=== PATIENT | male | born 1960 | race Caucasian/White ===

== ENCOUNTER 2020-04-20 02:28 | Outpatient (CLI) | payer MEDICARE, SELFPAY ==
[2020-04-20 19:52] LABS: SARS-CoV-2 RNA PCR Negative
== END 2020-04-20 02:29 | disposition home or self-care (01) ==
LOC: ANHCOVIDDT 02:28
PROVIDERS: PCP Family Medicine; Visit Provider Surgery
DX: Z01.812 Encounter for preprocedural laboratory examination (principal); Z20.828 Contact with and (suspected) exposure to other viral communicable diseases
CPT/HCPCS: 87635; C9803; U0003

== ENCOUNTER 2020-04-20 07:39 | Outpatient (CLI) | payer MEDICARE, SELFPAY ==
[2020-04-20 08:31] LABS: INR 2.1; Prothrombin Time 23.9 Seconds (11.1-14.7)
[2020-04-20 08:32] LABS: Anion Gap 8 mmol/L (8-16); Blood Urea Nitrogen 14 mg/dL (9-20); Calcium 9.9 mg/dL (8.4-10.2); Carbon Dioxide 26 mmol/L (22-30); Chloride 106 mmol/L (98-107); Estimated Glomerular Filt Rate > 60; Glucose 121 mg/dL (75-110); Partial Thromboplastin Time 37.1 SECONDS (22.3-36.8); Potassium 4.5 mmol/L (3.4-5.0); Sodium 140 mmol/L (137-145)
[2020-04-20 08:54] LABS: Digoxin 0.9 ng/mL (0.8-2.0)
== END 2020-04-20 07:40 | disposition home or self-care (01) ==
PROVIDERS: Anesthesiology; PCP Family Medicine; Visit Provider Surgery
DX: K40.30 Unilateral inguinal hernia, with obstruction, without gangrene, not specified as recurrent (principal); Z79.01 Long term (current) use of anticoagulants; Z01.818 Encounter for other preprocedural examination
CPT/HCPCS: 36415; 80048; 80162; 85610; 85730; 86850; 86900; 86901; 87635; C9803; U0003

== ENCOUNTER 2020-04-23 00:56 | Day surgery (SDC) | payer MEDICARE, SELFPAY ==
[2020-04-16 10:57] VITALS: BMI 25.7
--- NOTE | 2020-04-22 13:37 | WPDANESEPP ---
Anes - Eval Pre Procedure Procedure: Operation Date: 04/23/20 07:30 Proposed Procedures p Robotic Assisted Laparoscopic Incarcerated Right Inguinal Hernia Repair With Mesh - India Melara MD Date/Time: 04/22/20 13:37 Pre Op Diagnosis: Incarcerated Right Inguinal Hernia Patient Data Age: 59 Gender: M Height: 1.83 m Weight: 86.18 kg Allergies Allergy/AdvReac Type Severity Reaction Status Date / Time No Known Allergies Allergy Verified 04/16/20 10:57 Home Medications Medication Instructions Recorded Confirmed Type digoxin 250 mcg (0.25 mg) tablet 250 mcg PO QPM 03/02/20 04/16/20 History fenofibrate 160 mg tablet 160 mg PO DAILY 03/02/20 04/16/20 History lisinopril 20 mg tablet 20 mg PO DAILY 03/02/20 04/16/20 History metoprolol succinate 100 mg 100 mg PO BID 03/02/20 04/16/20 History capsule sprinkle, ext. release 24 hr rosuvastatin 40 mg tablet 40 mg PO DAILY 03/02/20 04/16/20 History sildenafil 100 mg tablet 100 mg PO DAILY PRN 03/02/20 04/16/20 History warfarin 1 mg tablet See Rx Instructions .ROUTE .COMPLEX 03/02/20 04/16/20 History warfarin 3 mg tablet 3 mg PO DAILY 03/02/20 04/16/20 History Patient hx anesthesia problems: none Family hx anesthesia problems: none PMFSH Past Medical History Medical History History of blood clots History of high cholesterol History of hypertension Surgical History Surgical History H/O eye surgery History of appendectomy Family History Family History Father Diabetes mellitus Heart disease Hypertension Malignant neoplasm of prostate Sibling Acute myocardial infarction Social History Social History Smoking packs per day: 0.5 Smoking cigarettes per day: 10.0 Years smoked: 5 Smoking pack-years: 2.50 Smoking status: Former smoker Tobacco type: cigarettes Smokeless tobacco user: chewing tobacco Additional smoking assessment comments: CURRENT CHEWING TOBACCO USE FOR 40 YEARS, QUIT CIGARETTES SEVERAL YEARS AGO Alcohol intake: current Drinks per week: 15 Substance use: current Substance use type: marijuana Last use: 04/15/2020 Spiritual care concerns: No Exam Day of Procedure 04/22/20 13:37
[2020-04-23] VITALS (10 sets, daily range): BP systolic 92–123; BP diastolic 63–95; PULSE 56–80; RESP 14–20; TEMP 36.3–36.5; O2SAT 96–100
--- NOTE | 2020-04-23 05:59 | ECG_ITS ---
Measurements Intervals Jay Rate: 72 P: SD: 0 QRS: 6 QRSD: 83 T: 0 QT: 354 QTc: 388 Interpretive Statements ATRIAL FIBRILLATION NONSPECIFIC ST & T-WAVE ABNORMALITY- INFERIOR LEADS ABNORMAL ECG Electronically Signed On 04-23-2020 8:34:[address] MAINTENANCE SUPERVISOR by Gustavo Srivastava D.O.
[2020-04-23] MEDS: ACETAMINOPHEN 500 MG TABLET 1000 MG PO (06:42)
[2020-04-23] MEDS: KETOROLAC 15 MG/ML VIAL (*BKC) IV PUSH (06:43)
[2020-04-23] MEDS: LACTATED RINGERS 1,000 ML 30 ML IV CONT ×2 (06:44→09:20)
--- NOTE | 2020-04-23 06:51 | WPDANESEPPF ---
Anes - Initial Pre Proc Eval Procedure: Operation Date: 04/23/20 07:30 Proposed Procedures p Robotic Assisted Laparoscopic Incarcerated Right Inguinal Hernia Repair With Mesh - India Melara MD Date/Time: 04/23/20 06:51 Surgeon: India Melara MD Pre Op Diagnosis: Incarcerated Right Inguinal Hernia Patient Data Age: 59 Gender: M Height: 1.83 m Weight: 91.55 kg Last Vital Signs Temp 36.3 C L 04/23/20 06:23 Pulse 65 04/23/20 06:23 Resp 14 04/23/20 06:23 BP 123/79 04/23/20 06:23 Pulse Ox 99 04/23/20 06:23 Allergies Allergy/AdvReac Type Severity Reaction Status Date / Time No Known Allergies Allergy Verified 04/23/20 06:19 Home Medications Medication Instructions Recorded Confirmed Type digoxin 250 mcg (0.25 mg) tablet 250 mcg PO QPM 03/02/20 04/23/20 History fenofibrate 160 mg tablet 160 mg PO DAILY 03/02/20 04/23/20 History lisinopril 20 mg tablet 20 mg PO DAILY 03/02/20 04/23/20 History metoprolol succinate 100 mg 100 mg PO BID 03/02/20 04/23/20 History capsule sprinkle, ext. release 24 hr rosuvastatin 40 mg tablet 40 mg PO DAILY 03/02/20 04/23/20 History sildenafil 100 mg tablet 100 mg PO DAILY PRN 03/02/20 04/23/20 History warfarin 1 mg tablet See Rx Instructions .ROUTE .COMPLEX 03/02/20 04/23/20 History warfarin 3 mg tablet 3 mg PO DAILY 03/02/20 04/23/20 History Laboratory Tests 04/23/20 06:30 PT Pending INR Pending Patient hx anesthesia problems: none Family hx anesthesia problems: none PMFSH Past Medical History Medical History (Updated 04/23/20 @ 06:44 by Quentin Ellis DO) A-fib History of blood clots History of high cholesterol History of hypertension History of pulmonary embolism skilled nursing current use of anticoagulant Surgical History Surgical History H/O eye surgery History of appendectomy Family History Family History Father Diabetes mellitus Heart disease Hypertension Malignant neoplasm of prostate Sibling Acute myocardial infarction Social History Social History Smoking packs per day: 0.5 Smoking cigarettes per day: 10.0 Years smoked: 5 Smoking pack-years: 2.50 Smoking status: Former smoker Tobacco type: cigarettes Smokeless tobacco user: chewing tobacco Additional smoking assessment comments: CURRENT CHEWING TOBACCO USE FOR 40 YEARS, QUIT CIGARETTES SEVERAL YEARS AGO Alcohol intake: current Drinks per week: 15 Substance use: current Substance use type: marijuana Last use: 04/15/2020 Spiritual care concerns: No Anes - Eval Final PreProcedure Day of Procedure 04/23/20 06:51 Patient weight: overweight Heart: regular rate and rhythm Lungs: clear to auscultation and normal air movement Airway: Mallampati scale class II Neurological: alert and oriented Last oral intake: >/= 8 hours ASA classification: III Emergent: no Anesthetic plan: proceed Anesthesia type and monitoring: general ETT and standard monitoring Informed Consent: The patient's anesthetic plan and its attendant risks and benefits were discussed with the patient/family/POA. Questions were solicited and answers provided to the satisfaction of the patient/family/POA.
[2020-04-23 07:03] LABS: INR 1.1; Prothrombin Time 15.2 Seconds (11.1-14.7)
[2020-04-23 07:06] LABS: Partial Thromboplastin Time 29.7 SECONDS (22.3-36.8)
--- NOTE | 2020-04-23 07:15 | PM.IMHP ---
H&P: HPI History of Present Illness Date/Time: 04/23/20 07:15 Chief complaint: Incarcerated Right Inguinal Hernia Narrative: Nino Alexander is a 59 year old male presenting for treatment of incarcerated right inguinal hernia. Patient first noticed a bulge in his right groin almost 10 months ago. In December, after heavy lifting, he developed increase in size and tenderness and is now unable to reduce the bulge. He denies scrotal swelling or urinary difficulty. He has hx of LE DVT and subsequent PE. During work-up of of, a right inguinal hernia was found on imaging. He is currently taking warfarin for his hx of blood clots and management a.fib. 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 Surgical History Surgical History H/O eye surgery History of appendectomy Family History Family History Father Diabetes mellitus Heart disease Hypertension Malignant neoplasm of prostate Sibling Acute myocardial infarction Social History Social History Smoking packs per day: 0.5 Smoking cigarettes per day: 10.0 Years smoked: 5 Smoking pack-years: 2.50 Smoking status: Former smoker Tobacco type: cigarettes Smokeless tobacco user: chewing tobacco Additional smoking assessment comments: CURRENT CHEWING TOBACCO USE FOR 40 YEARS, QUIT CIGARETTES SEVERAL YEARS AGO Alcohol intake: current Drinks per week: 15 Substance use: current Substance use type: marijuana Last use: 04/15/2020 Spiritual care concerns: No Meds Home Medications and Allergies Home Medications Medication Instructions Recorded Confirmed Type digoxin 250 mcg (0.25 mg) tablet 250 mcg PO QPM 03/02/20 04/23/20 History fenofibrate 160 mg tablet 160 mg PO DAILY 03/02/20 04/23/20 History lisinopril 20 mg tablet 20 mg PO DAILY 03/02/20 04/23/20 History metoprolol succinate 100 mg 100 mg PO BID 03/02/20 04/23/20 History capsule sprinkle, ext. release 24 hr rosuvastatin 40 mg tablet 40 mg PO DAILY 03/02/20 04/23/20 History sildenafil 100 mg tablet 100 mg PO DAILY PRN 03/02/20 04/23/20 History warfarin 1 mg tablet See Rx Instructions .ROUTE .COMPLEX 03/02/20 04/23/20 History warfarin 3 mg tablet 3 mg PO DAILY 03/02/20 04/23/20 History Allergies Allergy/AdvReac Type Severity Reaction Status Date / Time No Known Allergies Allergy Verified 04/23/20 06:19 Vital Signs Vital Signs - 24 hr 04/23/20 06:23 Temperature 36.3 C L Pulse Rate 65 Respiratory Rate 14 Blood Pressure 123/79 Pulse Oximetry 99 Exam Const: General: cooperative, comfortable and no acute distress Orientation/consciousness: patient oriented x3 Resp: Effort & Inspection: normal respiratory effort Auscultation: clear to auscultation bilaterally Cardio: Jugular venous distension: no JVD Rate: regular rate Rhythm: regular rhythm GI: Inspection: normal to inspection, non-distended, no incisions and visible herniation GI Palp: Yes abdominal tenderness, Yes Soft to palpation, Yes Tenderness to palpation present (GI), No Guarding due to palpation present (GI) and No Rigid due to palpation Other: incarcerated [facility] Assessment and Plan Assessment and plan (1) Incarcerated inguinal hernia, unilateral: Code(s): K40.30 - Unilateral inguinal hernia, with obstruction, without gangrene, not specified as recurrent Status: Acute Assessment and Plan: plan for repair with mesh in OR today, d/w pt re: risks, benefits, and alternatives and he wishes to proceed (2) medical terminologist curren
--- NOTE | 2020-04-23 07:18 | WPDHPUPDATE1 ---
History and Physical Update Update Date/Time: 04/23/20 07:18 History and Physical has been reviewed, including an updated exam of the patient. There are NO changes in the patient's condition. Risks, benefits, and alternatives have been discussed and questions answered. Patient agrees to proceed with procedure.
[2020-04-23] MEDS: ceFAZolin 2 GM/D5W 50 ML 2 GM/50 ML BAG IVPB (07:36)
--- NOTE | 2020-04-23 08:56 | PM.PROC ---
Procedure Note - Detailed Date of procedure: 04/23/20 Pre-op diagnosis: Incarcerated Right Inguinal Hernia Post-op diagnosis: same Procedure performed: robotic assisted incarcerated right inguinal hernia repair with mesh Description of procedure: Patient was brought into the operating room and placed in the supine position. After adequate induction of general anesthesia, the patient was prepped and draped in normal sterile fashion. A time-out was then done to verify the patient's identity, as well as the procedure being performed. Began by making a 8 mm incision in the supraumbilical region, a Veress needle was then placed into the peritoneal cavity. CO2 gas was then insufflated and after adequate pneumoperitoneum was achieved, the Veress needle was removed. I then placed an 8 mm trocar through this incision. I then placed the endoscope through this trocar site and under direct visualization placed 2 further 8 mm ports in the right and left mid abdomen. The [employer] robot was then docked to the 3 trocar sites. I then scrubbed out and went to the robotic console. Upon examining the pelvis, it was noted that the patient had a incarcerated right inguinal hernia with preperitoneal fat. I was able to reduce the preperitoneal fat with gentle retraction out of the hernia. Once this was done, I began by making a preperitoneal flap approximately 6 cm superior to the defect. This flap was carried medially past the umbilical ligaments in laterally to the transversalis. It then began dissection of my medial compartment taking this down to the pubic tubercle. I then began the lateral dissection taking this down to the transversalis fascia. Once these compartments were achieved, I began dissection around the cord structures. It was noted at this point that the patient had a indirect hernia. Patient also had a large lipoma the cord. Using careful dissection, was able to reduce the lipoma cord as well separate the indirect hernia off the cord structures. Once this was adequately done, I went ahead and placed a 15 x 10 piece of [employer] mesh into the abdominal cavity. The mesh was carefully positioned, centering the center of the mesh over the indirect defect. Once this was done, was very satisfied with our repair. I then closed the peritoneal flap with a running 2.0 V Lock suture. The abdomen was then desufflated, and all ports were removed. All incisions were then closed with the 4.0 monocryl suture. Dermabond was placed on each wound. The patient tolerated the procedure well, was extubated in the operating room postoperatively, and will now be transferred to the recovery room in stable condition. Implants: 15 x 10 progrip mesh Anesthesia: GETA Surgeon: India Melara MD Estimated blood loss (mL): 5 Drains: No Packing: No Pathology: none sent Complications: No immediate complications Condition: stable Disposition: PACU Findings: indirect RIH c incarcerated preperitoneal fat
[2020-04-23] MEDS: fentaNYL CITRATE INJ (*CRX) 100 MCG/2 ML VIAL 25 MCG IV PUSH (10:07)
== END 2020-04-23 11:20 | disposition home or self-care (01) ==
PROVIDERS: Anesthesiology; PCP Family Medicine; Visit Provider Surgery
PROC: 8E0Y4CZ Robotic Assisted Procedure of Lower Extremity, Percutaneous Endoscopic Approach (ICD-10-PCS; CPT 49650; principal; 2020-04-23 07:30)
DX: K40.30 Unilateral inguinal hernia, with obstruction, without gangrene, not specified as recurrent (principal); F17.220 Nicotine dependence, chewing tobacco, uncomplicated; F12.90 Cannabis use, unspecified, uncomplicated
CPT/HCPCS: 49650; S2900; 36415; 80048; 80162; 85610; 85730; 86850; 86900; 86901; 87635; 93005; A9270; C1781; C9803; J0330; J0690; J1100; J1885; J2250; J2405; J2704; J3010; J7030; J7120; U0003